=== PATIENT | female | born 1990 | race African-American/Black ===

== ENCOUNTER 2023-04-28 15:25 | Emergency (ER) | payer OTHER ==
[2023-04-28 15:33] VITALS: BP 125/76; PULSE 64; RESP 18; TEMP 97.7; BMI 49.8
[2023-04-28] MEDS ORDERED: METHOCARBAMOL 500 MG TABLET PO ONE (15:37)
[2023-04-28] MEDS ORDERED: LIDOCAINE 5% TOPICAL PATCH TP ONE (15:37)
[2023-04-28] MEDS ORDERED: KETOROLAC TROMETHAMINE 30 MG/1 ML VIAL IM ONE (15:37)
[2023-04-28] MEDS ORDERED: KETOROLAC TROMETHAMINE 30 MG/1 ML VIAL ONE (15:45)
[2023-04-28] MEDS ORDERED: METHOCARBAMOL 500 MG TABLET ONE (15:45)
[2023-04-28] MEDS ORDERED: LIDOCAINE 5% TOPICAL PATCH ONE (15:46)
[2023-04-28] MEDS ORDERED: LIDOCAINE PATCH REMOVAL MC SCH (22:00)
== END 2023-04-28 17:50 | disposition home or self-care (01) ==
LOC: FER 15:25
PROC: 3E0233Z Introduction of Anti-inflammatory into Muscle, Percutaneous Approach (ICD-10-PCS; principal; 2023-04-28)
DX: M54.50 Low back pain, unspecified (principal)
CPT/HCPCS: 96372; 99284-25